=== PATIENT | female | born 1930 | race Caucasian/White ===

== ENCOUNTER 2017-08-08 13:12 | Emergency (ER) | payer MEDICARE, BC ==
[2017-08-08] MEDS ORDERED: Acetaminophen 325 MG Tab PO STA (13:47)
[2017-08-08 13:50] VITALS: BP 182/67
[2017-08-08] MEDS ORDERED: Amoxicillin/Clavulanate K 875-125 MG Tab ONE (14:00)
--- NOTE | 2017-08-08 16:37 | EDM.PDOC ---
ED HPI GENERAL MEDICAL PROBLEM - General Chief Complaint: General Stated Complaint: FALL Time Seen by Provider: 08/08/17 13:30 Source of Information: Reports: Patient, Family History Limitations: Reports: No Limitations - History of Present Illness INITIAL COMMENTS - FREE TEXT/NARRATIVE: Patient is an 87 year old woman who was walking out to her car in the [place] of the [employer]. She tripped on a heave on the concrete and fell onto the left side of her face. She did not lose consciousness and has minimal pain around the left eye with black and blue discoloration. She can move her eye normally and she has no other complaints or pain. Onset: Today Onset Date: 08/08/17 Onset Time: 12:30 Duration: Hour(s): (1), Constant Location: Reports: Face Quality: Reports: Ache Severity: Mild Improves with: Reports: None Worsens with: Reports: None Context: Reports: Trauma (Tripped and fell on face.) Associated Symptoms: Reports: No Other Symptoms Left Eye Pain Score (Numeric/FACES): 2 - Related Data Allergies Allergy/AdvReac Type Severity Reaction Status Date / Time morphine Allergy Hallucinati Verified 08/08/17 16:19 ons Home Meds: Home Meds Aspirin [Halfprin] 81 mg PO DAILY 08/17/15 [History] Calcium Citrate 1 tab PO DAILY 08/17/15 [History] Citalopram [Citalopram Hbr] 40 mg PO DAILY 08/17/15 [History] Lutein/Min/Vit C/Vit E Acetate [Ocuvite Lutein] 1 cap PO DAILY 08/17/15 [History ] buPROPion [Wellbutrin XL] 150 mg PO DAILY 08/17/15 [History] predniSONE [Prednisone] 10 mg PO DAILY 08/17/15 [History] Past Medical History HEENT History: Reports: Cataract Cardiovascular History: Reports: [place], Other (See Below) Other Cardiovascular History: 1989 [place] with Stents Gastrointestinal History: Reports: Chronic Constipation HYDRAULIC RUBBISH 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 (See Below) Other OB/BYN History: hysterectomy many years ago Musculoskeletal History: Reports: Other (See Below) Other Musculoskeletal History: myalgia arthritis Psychiatric History: Reports: Anxiety, Depression - Infectious Disease History Infectious Disease History: Reports: Chicken Pox, Measles, Mumps Social & Family History - Tobacco Use Smoking Status *Q: Never Smoker Second Hand Smoke Exposure: No - Caffeine Use Caffeine Use: Reports: Coffee - Recreational Drug Use Recreational Drug Use: No ED ROS GENERAL - Review of Systems Review Of Systems: See Below Constitutional: Reports: No Symptoms HEENT: Reports: Sinus Problem, Other (Face pain.) Respiratory: Reports: No Symptoms Cardiovascular: Reports: No Symptoms Endocrine: Reports: No Symptoms GI/Abdominal: Reports: No Symptoms : Reports: No Symptoms Musculoskeletal: Reports: No Symptoms Skin: Reports: No Symptoms Neurological: Reports: No Symptoms Psychiatric: Reports: No Symptoms Hematologic/Lymphatic: Reports: No Symptoms Immunologic: Reports: No Symptoms ED EXAM, GENERAL - Physical Exam Exam: See Below Exam Limited By: No Limitations General Appearance: Alert, WD/WN, No Apparent Distress Eye Exam: Bilateral Eye: EOMI, Normal Fundi, Normal Inspection, Periorbital Changes (Contusions and discoloration around left eye.), PERRL Ears: Normal External Exam, Normal Canal, Hearing Grossly Normal, Normal TMs Ear Exam: Bilateral Ear: Auricle Normal, Canal Normal, TM normal Nose: Normal Inspection, Normal Mucosa, No Blood Throat/Mouth: Normal Inspection Head: Facial Swelling, Facial Tenderness, Sinus Tenderness (Left cheek and eye are sore and bruised where she fell on face.) Neck: Normal Inspection, Supple, Non-Tender, Full Range of Motion Respiratory/Chest: No Respiratory Distress, Lungs Clear, Normal Breath Sounds, No Accessory Muscle Use, Chest Non-Tender Cardiovascular: Normal Peripheral Pulses, Regular Rate, Rhythm, No Edema, No Gallop, No JVD, No Murmur, No Rub GI/Abdominal: Normal Bowel Sounds, Soft, Non-Tender, No Organomegaly, No Distention, No Abnormal Bruit, No Mass Back Exam: Normal Inspection, Full Range of Motion, NT Extremities: Normal Inspection, Normal Range of Motion, Non-Tender, Normal Capillary Refill, No Pedal Edema Neurological: Alert, Oriented, CN II-XII Intact, Normal Cognition, Normal Gait, Normal Reflexes, No Motor/Sensory Deficits Psychiatric: Normal Affect, Normal Mood Skin Exam: Warm, Dry, Normal Color, No Rash, Wound/Incision (Superficial laceration 1.5 cm along the left lateral eye socket.) Lymphatic: No Adenopathy ED GENERAL MEDICAL PROCEDURES - Laceration/Wound Repair Left Lateral Face Lac/wound length in cm: 1.5 Appearance: Superficial, Clean Distal NVT: Neuro & Vascular Intact Skin Prep: Saline Exploration/Debridement/Repair: Wound Explored, In a Bloodless Field, Explored to Base, No Foreign Material Found Suture Type: Other (Used Dermabond to close wound with good results and hemostasis.) Course - Vital Signs Text/Narrative:: Uneventful ED course. Her Head CT and Cervical spine CT showed no intracranial or neck injuries but the Head and Facial Bone CT showed Fractures of the Left zygomatic arch, spence of the left maxillary sinuse and left orbit. Discussion with ENT dining chair seat cushion trimmer in [place], and he said that this should be seen by Dr. Lutz in ENT at [facility] once the swelling goes down this week. She will be sent home on Augmentin 875 mg po bid x 10 days, #20. Tylenol 500 mg po q 4 hours and ice on the area. She will follow up tomorrow at the clinic to get all of the appointments made in [place] for later this week. Last Recorded V/S: Last Vital Signs Temp 36.8 C 08/08/17 13:49 Pulse 65 08/08/17 13:49 Resp 16 08/08/17 13:49 BP 182/67 H 08/08/17 13:49 Pulse Ox 99 08/08/17 13:49 - Orders/Labs/Meds Orders: Active Orders 24 hr Category Date Time Status Cervical Spine wo Cont [CT] Stat Exams 08/08/17 13:34 Taken Head wo Cont [CT] Stat Exams 08/08/17 13:33 Taken Max Facial Sinus wo Cont [CT] Stat Exams 08/08/17 14:44 Taken Labs: Laboratory Tests 08/08/17 08/08/17 Range/Units 13:40 13:40 WBC 4.9 D (4.0-11.0) K/uL RBC 3.47 L (3.80-5.80) M/uL Hgb 11.2 L (11.5-16.5) g/dL Hct 34.1 L (37.0-47.0) % MCV 98 H (76-96) fL MCH 32.3 H (27.0-32.0) pg MCHC 32.8 (31.0-35.0) g/dL RDW 13.3 (11.0-16.0) % Plt Count 267 (150-500) K/uL MPV 8.8 (6.0-10.0) fL Neut % (Auto) 86.5 H (45.0-70.0) % Lymph % (Auto) 9.6 L (20.0-40.0) % Gilliam % (Auto) 3.3 (3.0-10.0) % Eos % (Auto) 0.2 L (1.0-5.0) % Baso % (Auto) 0.4 (0.0-0.5) % Neut # (Auto) 4.24 (2.00-7.50) K/uL Lymph # (Auto) 0.47 L (1.50-4.00) K/uL Gilliam # (Auto) 0.16 L (0.20-0.80) K/uL Eos # (Auto) 0.01 L (0.04-0.40) K/uL Baso # (Auto) 0.02 (0.02-0.10) K/uL Sodium 139 (136-145) mmol/L Potassium 4.6 (3.5-5.1) mmol/L Chloride 104 (98-107) mmol/L Carbon Dioxide 22.8 (21.0-32.0) mmol/L Anion Gap 16.8 H (5.0-15.0) mmol/L BUN 18 (8-26) mg/dL Creatinine 1.06 H (0.55-1.02) mg/dL Est Cr Clr Drug Dosing 28.75 mL/min Estimated GFR (MDRD) 49 L (>60) MLS/MIN BUN/Creatinine Ratio 17.0 (6-25) Glucose 119 H D (74-100) mg/dL Calcium 7.4 L (8.5-10.1) mg/dL Total Bilirubin 0.4 D (0.0-1.0) mg/dL AST 28 (15-37) U/L ALT 31 (12-78) U/L Alkaline Phosphatase 70 (46-116) U/L Total Protein 6.3 L (6.4-8.2) g/dL Albumin 3.1 L (3.4-5.0) g/dL Globulin 3.2 (2.2-4.2) g/dL Albumin/Globulin Ratio 1.0 (0.8-2.0) Meds: Medications Discontinued Medications Generic Name Dose Route Start Last Admin Trade Name Cyril PRN Reason Stop Dose Admin Acetaminophen 650 mg 08/08/17 13:47 08/08/17 13:58 Tylenol PO 08/08/17 13:48 650 mg NOW STA Administration Departure - Departure Time of Disposition: 16:50 Disposition: Home, Self-Care 01 Condition: Good Clinical Impression: Extensive facial fractures - Discharge Information Instructions: Head Injury, Adult Referrals: PCP,None [Primary Care Provider] - Forms: ED Department Discharge - My Orders Last 24 Hours: My Active Orders 08/08/17 13:33 Head wo Cont [CT] Stat 08/08/17 13:34 Cervical Spine wo Cont [CT] Stat 08/08/17 14:44 Max Facial Sinus wo Cont [CT] Stat - Assessment/Plan Last 24 Hours: My Active Orders 08/08/17 13:33 Head wo Cont [CT] Stat 08/08/17 13:34 Cervical Spine wo Cont [CT] Stat 08/08/17 14:44 Max Facial Sinus wo Cont [CT] Stat
--- NOTE | 2017-08-08 19:08 | CT ---
DATE OF SERVICE: 08/08/2017 CLINICAL DATA: Fell and hit head on concrete at the grocery store. UNENHANCED BRAIN CT: Multislice acquisition through the brain without IV contrast was performed. There is diffuse cerebral atrophy. There are extensive periventricular lucencies bilaterally consistent with small vessel ischemic change. No masses or mass effect. No intracranial hemorrhage. No evidence of acute or subacute infarct. There are fractures noted through the anterior and posterior lateral spence of the left maxillary sinus as well as a mildly displaced fracture through the left zygomatic arch. This is consistent with a tripod fracture. There is soft tissue swelling and soft tissue emphysema anterior to the left maxilla. There is also a comminuted mildly displaced fracture through the lateral wall of the left orbit. No other acute abnormalities. [id number] [facility]
--- NOTE | 2017-08-08 19:13 | CT ---
DATE OF SERVICE: 08/08/2017 CLINICAL DATA: Fracture of left maxillary sinus. FACIAL CT: Multislice axial acquisition was performed. Axial images and sagittal and coronal reformations are reviewed. Again noted is a mildly displaced fracture through the zygomatic arch on the left. There are comminuted mildly displaced fractures through the anterior and posterior lateral spence of the left maxillary sinus. There is also a comminuted mildly displaced fracture through the lateral wall of the left orbit. There is a mildly displaced fracture through the floor of the left orbit also. No entrapment. The left maxillary sinus is partially filled with soft tissue density material, probably thrombus. There is soft tissue swelling adjacent to the maxilla and mandible. I do not see any other fractures. There is deviation of the nasal septum to the right. There is soft tissue swelling of the middle and inferior nasal turbinates. IMPRESSION: Multiple fractures. [id number] [facility]
--- NOTE | 2017-08-08 19:17 | CT ---
DATE OF SERVICE: 08/08/2017 CLINICAL DATA: Fell and hit head. In C-collar. CERVICAL SPINE CT: Multislice axial acquisition was performed. Axial images and sagittal and coronal reformations are reviewed. The vertebral bodies are of average height. No acute fracture or dislocation. There is mild degenerative disc disease at multiple levels. There is facet joint hypertrophy at multiple levels. No lytic or blastic bone lesions. The soft tissues are unremarkable. The visualized lung apices are clear. IMPRESSION: No acute abnormalities. [id number] [facility]
== END 2017-08-08 17:04 | disposition home or self-care (01) ==
LOC: LB.ED 13:12
DX: S02.40DA Maxillary fracture, left side, initial encounter for closed fracture (principal); S02.40FA Zygomatic fracture, left side, initial encounter for closed fracture; S02.82XA Fracture of other specified skull and facial bones, left side, initial encounter for closed fracture; S02.32XA Fracture of orbital floor, left side, initial encounter for closed fracture; S01.81XA Laceration without foreign body of other part of head, initial encounter; W01.190A Fall on same level from slipping, tripping and stumbling with subsequent striking against furniture, initial encounter; Y92.481 Parking lot as the place of occurrence of the external cause; Z79.82 Long term (current) use of aspirin; Z88.5 Allergy status to narcotic agent; Z79.899 Other long term (current) drug therapy
CPT/HCPCS: 12011; 36415; 70450; 70486; 72125; 80053; 85025; 99284; 99284-25; A0425; A0429; A9270-GY

== ENCOUNTER 2018-08-10 01:10 | Emergency (ER) | payer MEDICARE, BC ==
[2018-08-10 01:33] VITALS: BP 190/60
--- NOTE | 2018-08-10 16:14 | EDM.PDOC ---
ED HPI GENERAL MEDICAL PROBLEM - General Chief Complaint: General Stated Complaint: FELL Time Seen by Provider: 08/10/18 01:15 Source of Information: Reports: Patient History Limitations: Reports: No Limitations - History of Present Illness INITIAL COMMENTS - FREE TEXT/NARRATIVE: According to patient she got up at night to use bathroom and lost balance and fell and hit her face against the sink, sustained a swelling over the left side of the forehead. No loss of concious. No bleeding form ENT, No dizziness, no visual disturbance, no headache. Pt has a large lump over the left fore head and hence here to have it checked. No other injuries. Pt does take plavix daily. Onset Date: 08/10/18 Onset Time: 00:30 Location: Reports: Face Severity: Mild Improves with: Reports: Cold Therapy Worsens with: Reports: None Associated Symptoms: Denies: Confusion, Chest Pain, Cough, Diaphoresis, Fever/ Chills, Headaches, Loss of Appetite, Nausea/Vomiting, Seizure, Shortness of Breath, Syncope, Weakness Left Upper Eye Pain Score (Numeric/FACES): 7 - Related Data Allergies Allergy/AdvReac Type Severity Reaction Status Date / Time morphine Allergy Hallucinati Verified 08/10/18 01:24 ons Home Meds: Home Meds Aspirin [Halfprin] 81 mg PO DAILY 08/17/15 [History] Calcium Citrate 1 tab PO DAILY 08/17/15 [History] Citalopram [Citalopram Hbr] 40 mg PO DAILY 08/17/15 [History] Lutein/Min/Vit C/Vit E Acetate [Ocuvite Lutein] 1 cap PO DAILY 08/17/15 [History ] buPROPion [Wellbutrin XL] 150 mg PO DAILY 08/17/15 [History] predniSONE [Prednisone] 10 mg PO DAILY 08/17/15 [History] Clopidogrel Bisulfate [Clopidogrel] 75 mg PO DAILY 08/10/18 [History] Erythromycin Base [Erythromycin] 1 applic OP ASDIRECTED 08/10/18 [History] Losartan Potassium 25 mg PO DAILY 08/10/18 [History] Oxybutynin [Oxybutynin ER] 5 mg PO DAILY 08/10/18 [History] Past Medical History HEENT History: Reports: Cataract, Macular Degeneration Cardiovascular History: Reports: [place], Other (See Below) Other Cardiovascular History: 1989 [place] with Stents Gastrointestinal History: Reports: Chronic Constipation 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 (See Below) Other LIVESTOCK INSPECTOR History: hysterectomy many years ago Musculoskeletal History: Reports: Other (See Below) Other Musculoskeletal History: myalgia arthritis Psychiatric History: Reports: Anxiety, Depression - Infectious Disease History Infectious Disease History: Reports: Chicken Pox, Measles, Mumps Social & Family History - Tobacco Use Smoking Status *Q: Unknown Ever Smoked Second Hand Smoke Exposure: No - Caffeine Use Caffeine Use: Reports: Coffee - Recreational Drug Use Recreational Drug Use: No ED ROS GENERAL - Review of Systems Review Of Systems: See Below Constitutional: Denies: Fever, Chills, Malaise HEENT: Denies: Eye Discharge, Nosebleed, Rhinitis, Throat Pain, Throat Swelling , Vision Change Respiratory: Denies: Shortness of Breath, Wheezing Cardiovascular: Denies: Chest Pain, Lightheadedness, Palpitations Endocrine: Denies: Fatigue GI/Abdominal: Denies: Abdominal Pain, Nausea, Vomiting : Denies: Incontinence, Urgency Musculoskeletal: Denies: Joint Pain, Joint Swelling Skin: Reports: Wound. Denies: Rash, Erythema Neurological: Denies: Confusion, Dizziness, Headache, Numbness, Pre-Existing Deficit, Syncope, Tingling, Tremors, Difficulty Walking, Weakness, Change in Speech ED EXAM, GENERAL - Physical Exam Exam: See Below Exam Limited By: No Limitations General Appearance: Alert, WD/WN, No Apparent Distress Eye Exam: Bilateral Eye: EOMI, PERRL Ears: Normal External Exam, Normal Canal, Hearing Grossly Normal, Normal TMs Ear Exam: Bilateral Ear: Auricle Normal, Canal Normal, TM normal Nose: Normal Inspection, Normal Mucosa, No Blood Throat/Mouth: Normal Inspection, Normal Lips, Normal Teeth, Normal Gums, Normal Oropharynx, Normal Voice, No Airway Compromise Head: Facial Swelling (There is a 2cm nby 3 cm raised swelling over the left forehead just above the eyebrow. minimal tenderness. there is skin brusing aound it.). No: Facial Tenderness, Sinus Tenderness Neck: Normal Inspection, Supple, Non-Tender, Full Range of Motion Respiratory/Chest: No Respiratory Distress, Lungs Clear, Normal Breath Sounds, No Accessory Muscle Use, Chest Non-Tender Cardiovascular: Normal Peripheral Pulses, Regular Rate, Rhythm, No Edema, No Gallop, No JVD, No Murmur, No Rub Extremities: Normal Inspection, Normal Range of Motion, Non-Tender, Normal Capillary Refill, No Pedal Edema Neurological: Alert, Oriented, CN II-XII Intact, Normal Cognition, Normal Gait, Normal Reflexes, No Motor/Sensory Deficits Psychiatric: Normal Affect, Normal Mood Course - Vital Signs Text/Narrative:: Pt reassured that she has a small forehead external hematoma form the fall. Her neuro exam is normal. Advised to monitor for head injury signs for next 24 hrs. Information give to patient, if it occurs return to emergency room. Otherwise advised cold compresses to the forehead every 2-3 hrs for next 24 hrs. The bruising should resolve in 2-3 wks. Last Recorded V/S: Last Vital Signs Temp 97.2 F 08/10/18 01:10 Pulse 62 08/10/18 01:10 Resp 16 08/10/18 01:10 BP 190/60 H 08/10/18 01:10 Pulse Ox 100 08/10/18 01:10 Departure - Departure Time of Disposition: 14:00 Disposition: Home, Self-Care 01 Condition: Good Clinical Impression: Traumatic hematoma of forehead - Discharge Information *PRESCRIPTION DRUG MONITORING PROGRAM REVIEWED*: Not Applicable *COPY OF PRESCRIPTION DRUG MONITORING REPORT IN PATIENT TY: Not Applicable Instructions: Head Injury, Adult, [id number] Referrals: PCP,None [Primary Care Provider] - Forms: ED Department Discharge Additional Instructions: Should any severe headache, nausea, vomiting, loss of or blurry vision, ringing in ears, or change in mental status/confusion occur within next 24 hours, return to be seen right away. Apply cold compresses to affected area for 15 minutes every 2-3 hours to help decrease swelling and for pain relief. If any bleeding in the affected eye itself is noted, that is normal with this type of injury. Otherwise follow up in clinic as needed. Call with any questions. - Problem List & Annotations (1) Traumatic hematoma of forehead SNOMED Code(s): 456449724, 512053074 Code(s): S00.83XA - CONTUSION OF OTHER PART OF HEAD, INITIAL ENCOUNTER Status: Acute - Problem List Review Problem List Initiated/Reviewed/Updated: Yes - Assessment/Plan Assessment:: Forehead hematoma Plan: Pt reassured that she has a small forehead external hematoma form the fall. Her neuro exam is normal. Advised to monitor for head injury signs for next 24 hrs. Information give to patient, if it occurs return to emergency room. Otherwise advised cold compresses to the forehead every 2-3 hrs for next 24 hrs. The bruising should resolve in 2-3 wks.
== END 2018-08-10 01:47 | disposition home or self-care (01) ==
LOC: LB.ED 01:10
DX: S00.83XA Contusion of other part of head, initial encounter (principal); I25.2 Old myocardial infarction; F41.9 Anxiety disorder, unspecified; F32.9 Major depressive disorder, single episode, unspecified; Z79.899 Other long term (current) drug therapy; Z79.82 Long term (current) use of aspirin; Z88.5 Allergy status to narcotic agent; W01.198A Fall on same level from slipping, tripping and stumbling with subsequent striking against other object, initial encounter
CPT/HCPCS: 99283

== ENCOUNTER 2018-08-20 07:58 | Emergency (ER) | payer MEDICARE, BC ==
[2018-08-20] MEDS ORDERED: Omeprazole 20 MG Cap.CR ONE ×2 (08:20→09:24)
[2018-08-20] MEDS ORDERED: Aluminum Hydroxide/Magnesium Hydroxide/Simethicone Susp 30 ML Cup ONE (08:21)
[2018-08-20 09:03] VITALS: BP 165/75
--- NOTE | 2018-08-20 16:54 | ER ---
HISTORY: The patient is an 88-year-old white female, comes in with a chief complaint of chest pain. She notes she woke up with it this morning. She describes it as a burning pain. She has had it off and on the last couple of days, primarily at night when she is lying down in bed. Once the nitroglycerin improved and once it did not. The patient does have a history of coronary artery disease. ALLERGIES: MORPHINE. CURRENT MEDICATIONS: Are prednisone 10 mg p.o. daily, Wellbutrin 150 mg p.o. daily, oxybutynin 5 mg p.o. daily, Ocuvite 1 p.o. daily, losartan 25 mg p.o. daily. The patient uses some topical erythromycin. She is on Plavix 75 mg p.o. daily and citalopram 40 mg p.o. daily. She also takes some calcium citrate and an 81 mg aspirin. PHYSICAL EXAMINATION: GENERAL: She is alert, oriented, no apparent distress. She does have quite a bit of bruising on the left side of her face from previous fall. HEART: Regular sinus rhythm. LUNGS: Clear. ABDOMEN: Soft, nontender. Positive bowel sounds. No hepatosplenomegaly. EXTREMITIES: She has some trace edema. DATA: A 12-lead EKG shows some nonspecific ST changes. The patient had a white count of 7.1, hemoglobin and hematocrit were good at 11.7 and 35.6. Basic metabolic panel shows a BUN of 20, creatinine 1.15. Electrolytes are all within normal limits. We did do a troponin which was less than 0.017. In the ER, the patient received a GI cocktail after the 12-lead was obtained, this brought fairly quick relief to her discomfort. The labs were reviewed. The patient was rechecked and was discharged home on Prilosec 20 mg 1 p.o. daily with instructions to return to clinic if this fails to resolve the problem, would have her take it daily at least for the next several weeks. ASSESSMENT: Chest pain, noncardiac, most likely due to GE reflux. SULEMAN/CARMEN /[id number]
== END 2018-08-20 09:23 | disposition home or self-care (01) ==
LOC: LB.ED 07:58
DX: R07.89 Other chest pain (principal)
CPT/HCPCS: 36415; 80048; 84484; 85025; 93005; 99284; A9270

== ENCOUNTER 2018-11-23 04:00 | Emergency (ER) | payer MEDICARE, BC ==
[2018-11-23] MEDS ORDERED: HYDROmorphone 2 MG/ML SDV IVPUSH ONE (04:39)
[2018-11-23] MEDS ORDERED: HYDROmorphone 2 MG/ML Syringe IVPUSH ONE (05:55)
[2018-11-23] MEDS ORDERED: HYDROmorphone 2 MG/ML SDV ONE ×2 (05:55→08:04)
--- NOTE | 2018-11-23 06:10 | EDM.PDOC ---
ED HPI GENERAL MEDICAL PROBLEM - General Chief Complaint: General Stated Complaint: FALL Time Seen by Provider: 11/23/18 04:45 Source of Information: Reports: Patient, Family History Limitations: Reports: No Limitations - History of Present Illness INITIAL COMMENTS - FREE TEXT/NARRATIVE: Pt was brought in by family to the emergency room, as she fell today morning.Pt came in walking into the emergency room. According to patient she got up to use bathroom around 4 AM. Loyal dizzy and fell in the bathroom and hit her head against the bathtub and sustained a large left forehead hematoma. C/o pain in her right forehead . Rates her pain in the head at 8/10 and constant. NO loss of consciousness, No nausea or vomiting. No blurry vision. No weakness , tingling or numbness in the extremities. Also , Pt c/o pain in the back of her neck, more so in the upper neck. No open wounds.Pt was placed in the C-collar on arrival. Onset: Today Onset Date: 11/23/18 Onset Time: 04:00 Duration: Constant Location: Reports: Head, Face, Neck Quality: Reports: Ache Severity: Moderate Improves with: Reports: Cold Therapy Associated Symptoms: Reports: Headaches. Denies: Confusion, Chest Pain, Cough, Diaphoresis, Fever/Chills, Nausea/Vomiting, Rash, Seizure, Shortness of Breath, Syncope, Weakness - Related Data Allergies Allergy/AdvReac Type Severity Reaction Status Date / Time morphine Allergy Hallucinati Verified 08/20/18 08:52 ons Home Meds: Home Meds Aspirin [Halfprin] 81 mg PO DAILY 08/17/15 [History] Calcium Citrate 1 tab PO DAILY 08/17/15 [History] Citalopram [Citalopram Hbr] 40 mg PO DAILY 08/17/15 [History] Lutein/Min/Vit C/Vit E Acetate [Ocuvite Lutein] 1 cap PO DAILY 08/17/15 [History ] buPROPion [Wellbutrin XL] 150 mg PO DAILY 08/17/15 [History] predniSONE [Prednisone] 15 mg PO DAILY 08/17/15 [History] Clopidogrel Bisulfate [Clopidogrel] 75 mg PO DAILY 08/10/18 [History] Losartan Potassium 25 mg PO DAILY 08/10/18 [History] Oxybutynin [Oxybutynin ER] 5 mg PO DAILY 08/10/18 [History] Past Medical History HEENT History: Reports: Cataract, Macular Degeneration Cardiovascular History: Reports: IN, Other (See Below) Other Cardiovascular History: 1989 IN with Stents Gastrointestinal History: Reports: Chronic Constipation [employer] History: Reports: Other (See Below) Other [employer] History: hysterectomy many years ago Musculoskeletal History: Reports: Other (See Below) Other Musculoskeletal History: myalgia arthritis Psychiatric History: Reports: Anxiety, Depression - Infectious Disease History Infectious Disease History: Reports: Chicken Pox, Measles, Mumps Social & Family History - Caffeine Use Caffeine Use: Reports: Coffee ED ROS GENERAL - Review of Systems Review Of Systems: See Below Constitutional: Denies: Fever, Chills HEENT: Denies: Nosebleed, Rhinitis, Throat Pain Respiratory: Denies: Shortness of Breath, Pleuritic Chest Pain, Cough, Sputum Cardiovascular: Denies: Chest Pain, Lightheadedness GI/Abdominal: Denies: Abdominal Pain, Nausea, Vomiting : Denies: Dysuria, Frequency, Hematuria Musculoskeletal: Reports: Neck Pain. Denies: Back Pain, Joint Pain, Joint Swelling Skin: Reports: Bruising. Denies: Pruritis, Rash, Wound ED EXAM, GENERAL - Physical Exam Exam: See Below Exam Limited By: No Limitations General Appearance: Alert, WD/WN, Moderate Distress (from pain rates her pain at 8/10) Eye Exam: Bilateral Eye: EOMI, PERRL Ears: Normal External Exam, Normal Canal, Hearing Grossly Normal, Normal TMs Ear Exam: Bilateral Ear: Auricle Normal, Canal Normal, TM normal Nose: Normal Inspection, Normal Mucosa, No Blood Throat/Mouth: Normal Inspection, Normal Lips, Normal Teeth, Normal Gums, Normal Oropharynx, Normal Voice, No Airway Compromise Head: Facial Swelling, Other (Thee is a large right frontal hematoma with skin brusing extending into the right upper and lower yelid. The eye ball appears normal. She has normal vision and Good EOMI.). No: Facial Tenderness, Sinus Tenderness Neck: Tender Midline (tender over the upper cervical spine to palpation. Pt has been placed in hard collar) Respiratory/Chest: No Respiratory Distress, Lungs Clear, Normal Breath Sounds, No Accessory Muscle Use, Chest Non-Tender Cardiovascular: Normal Peripheral Pulses, Regular Rate, Rhythm, No Edema, No Gallop, No JVD, No Murmur, No Rub Back Exam: Normal Inspection, Full Range of Motion, NT Extremities: Normal Inspection, Normal Range of Motion, Non-Tender, Normal Capillary Refill, No Pedal Edema Neurological: Alert, Oriented, CN II-XII Intact, Normal Cognition, Normal Reflexes, No Motor/Sensory Deficits Skin Exam: Warm, Intact, Other (Large frontal hematoma as described about. ) Course - Vital Signs Text/Narrative:: 88 year old female s/p fall. She does have a large frontal hematoma with the bruise extending into her right eyelids. But the Globe appears normal. She has normal vision and ROM of the eye ball. She is tender over the upper posterior C- spine. No other injuries. Pt received 0.5mg Iv Dilaudid before sending her for Ct head and neck. CT head is negative for intracranial hemorrhage or skull fracture.Her CBC is stable. Her Pt and INT are within normal limits. Her CT spine shows acute fracture of the C2 across the base of the odontoid with atlantoaxial subluxation with 7mm anterior displacement of the cervical spine relative to the skull base and C1. I did contact [facility] and discuss patient clinical findings and the C- spine CT findings with the Neurosurgeon emergency management consultant. His recommendation was to place patient in the J-collar with good support and conservative management. Apparently we only have hard C-collar in the emergency room here. He recommended patient to be seen at neurosurgery clinic today. She should be okay for her to go down to neurosurgery clinic at [facility] today and be evaluated as out patient. Pt still rates her pain at 8/10, received another 1mg of dilaudid for her travel. I have discussed Dr. Rg recommendation with family. Patient and family agree with the plan. Pt will be seen at [facility] today. There are no neurological deficit at the time of discharge. Further care per . Last Recorded V/S: Last Vital Signs Temp 97.8 F 11/23/18 05:16 Pulse 62 11/23/18 05:16 Resp 20 11/23/18 05:16 BP 192/55 H 11/23/18 05:16 Pulse Ox 100 11/23/18 05:16 - Orders/Labs/Meds Orders: Active Orders 24 hr Category Date Time Status Cervical Spine wo Cont [CT] Stat Exams 11/23/18 04:27 Taken Head wo Cont [CT] Stat Exams 11/23/18 04:47 Taken CBC WITH AUTO DIFF [HEME] Stat Lab 11/23/18 05:51 Ordered COMPREHENSIVE METABOLIC PN,CMP [CHEM] Stat Lab 11/23/18 05:51 Ordered INR,PT,PROTHROMBIN TIME [COAG] Stat Lab 11/23/18 05:51 Ordered PTT,PARTIAL THROMBOPLSTIN TIME [COAG] Stat Lab 11/23/18 05:51 Ordered Meds: Medications Discontinued Medications Generic Name Dose Route Start Last Admin Trade Name Cyril PRN Reason Stop Dose Admin Hydromorphone HCl 0.5 mg 11/23/18 04:39 11/23/18 04:27 Dilaudid IVPUSH 11/23/18 04:40 0.5 mg ONETIME ONE Administration Hydromorphone HCl Confirm 11/23/18 05:55 Dilaudid Administered 11/23/18 05:56 Dose 2 mg .ROUTE .STK-MED ONE Departure - Departure Time of Disposition: 06:45 Disposition: DC/Tfer to Other 70 Condition: Fair Clinical Impression: C2 cervical fracture, Traumatic hematoma of forehead - Discharge Information *PRESCRIPTION DRUG MONITORING PROGRAM REVIEWED*: Not Applicable *COPY OF PRESCRIPTION DRUG MONITORING REPORT IN PATIENT TY: Not Applicable Referrals: PCP,None [Primary Care Provider] - - Problem List & Annotations (1) Traumatic hematoma of forehead SNOMED Code(s): 348226975, 875264003 Code(s): S00.83XA - CONTUSION OF OTHER PART OF HEAD, INITIAL ENCOUNTER Status: Acute Current Visit: Yes (2) C2 cervical fracture SNOMED Code(s): 626990842 Code(s): S12.100A - UNSP DISP FX OF SECOND CERVICAL VERTEBRA, INIT FOR CLOS FX Status: Acute Current Visit: Yes - Problem List Review Problem List Initiated/Reviewed/Updated: Yes - My Orders Last 24 Hours: My Active Orders 11/23/18 04:27 Cervical Spine wo Cont [CT] Stat 11/23/18 04:47 Head wo Cont [CT] Stat 11/23/18 05:51 CBC WITH AUTO DIFF [HEME] Stat COMPREHENSIVE METABOLIC PN,CMP [CHEM] Stat INR,PT,PROTHROMBIN TIME [COAG] Stat PTT,PARTIAL THROMBOPLSTIN TIME [COAG] Stat - Assessment/Plan Last 24 Hours: My Active Orders 11/23/18 04:27 Cervical Spine wo Cont [CT] Stat 11/23/18 04:47 Head wo Cont [CT] Stat 11/23/18 05:51 CBC WITH AUTO DIFF [HEME] Stat COMPREHENSIVE METABOLIC PN,CMP [CHEM] Stat INR,PT,PROTHROMBIN TIME [COAG] Stat PTT,PARTIAL THROMBOPLSTIN TIME [COAG] Stat Assessment:: C2 cervical fracture with atlantoaxial subluxation Right forehead hematoma Plan: 88 year old female s/p fall. She does have a large frontal hematoma with the bruise extending into her right eyelids. But the Globe appears normal. She has normal vision and ROM of the eye ball. She is tender over the upper posterior C- spine. No other injuries. Pt received 0.5mg Iv Dilaudid before sending her for Ct head and neck. CT head is negative for intracranial hemorrhage or skull fracture.Her CBC is stable. Her Pt and INT are within normal limits. Her CT spine shows acute fracture of the C2 across the base of the odontoid with atlantoaxial subluxation with 7mm anterior displacement of the cervical spine relative to the skull base and C1. I did contact [facility] and discuss patient clinical findings and the C- spine CT findings with the Neurosurgeon emergency management consultant. His recommendation was to place patient in the J-collar with good support and conservative management. Apparently we only have hard C-collar in the emergency room here. He recommended patient to be seen at neurosurgery clinic today. She should be okay for her to go down to neurosurgery clinic at [facility] today and be evaluated as out patient. Pt still rates her pain at 8/10, received another 1mg of dilaudid for her travel. I have discussed Dr. Rg recommendation with family. Patient and family agree with the plan. Pt will be seen at [facility] clinic today. There are no neurological deficit at the time of discharge. Further care per .
[2018-11-23 06:42] VITALS: BP 185/69; PULSE 63
[2018-11-23] MEDS ORDERED: HYDROmorphone 2 MG/ML SDV IM ONE (08:05)
--- NOTE | 2018-11-23 08:19 | CT ---
Date of Service: 11/23/18 Clinical Data: fall UNENHANCED BRAIN CT: Multislice axial acquisition was performed. Comparison is made to a prior exam dated 08/08/17. There is diffuse cerebral atrophy. There are extensive periventricular lucencies bilaterally consistent with small vessel ischemic change. No masses or mass effect. No intracranial hemorrhage. No evidence of acute or subacute infarct. There is marked soft tissue swelling and soft tissue hematoma anterior to the frontal bone. There is also marked preseptal soft tissue swelling on the right. I do not see an underlying fracture. There is mucosal thickening in the ethmoid sinuses consistent with chronic sinusitis. The sinuses are otherwise clear. No air-fluid levels. The globes and orbital contents appear unremarkable. IMPRESSION: No acute intracranial abnormalities. Large scalp hematoma and preseptal soft tissue swelling on the right. [id number] [facility]
--- NOTE | 2018-11-23 08:31 | CT ---
Date of Service: 11/23/18 Clinical Data: fall CERVICAL SPINE CT: Multislice axial acquisition was performed. Axial images and sagittal and coronal reformations are reviewed. The exam is abnormal. There is a displaced oblique fracture through the base of the odontoid process of C2. The odontoid fracture fragment is displaced posteriorly 7 mm. This does produce narrowing of the spinal canal in the AP dimension. There is mild compression deformity of the inferior endplate of C7 and superior endplates of T1 and T2. No central or foraminal stenosis at these levels. There is degenerative disk disease at multiple levels. There is facet joint hypertrophy throughout the cervical spine. Also noted is a mildly displaced comminuted fracture through the posterolateral wall of the left maxillary sinus. There is a mildly displaced fracture through the zygomatic arch on the left. There also appears to be a mildly displaced fracture through the anterior wall of the left maxillary sinus. There is a fracture that extends through the inferior aspect of the left maxilla with mild displacement also. There is near total opacification of the left maxillary sinus most likely representing hematoma. No other acute abnormalities. IMPRESSION: 1. Displaced C2 odontoid process fracture as discussed above. 2. Burst compression fractures of multiple lower cervical and upper thoracic vertebrae. 3. Tripod fracture involving the left maxilla and left zygomatic arch. Patient's physician was notified of these findings by telephone and by [facility] preliminary radiology report. [id number] [facility]
== END 2018-11-23 06:53 | disposition other institution (70) ==
LOC: LB.ED 04:00
DX: S12.100A Unspecified displaced fracture of second cervical vertebra, initial encounter for closed fracture (principal); S00.83XA Contusion of other part of head, initial encounter; S00.11XA Contusion of right eyelid and periocular area, initial encounter; I25.2 Old myocardial infarction; F41.9 Anxiety disorder, unspecified; F32.9 Major depressive disorder, single episode, unspecified; Z88.5 Allergy status to narcotic agent; Z79.82 Long term (current) use of aspirin; Z79.899 Other long term (current) drug therapy; W18.39XA Other fall on same level, initial encounter
CPT/HCPCS: 36415; 70450; 72125; 85025; 85610; 85730; 96374; 96376; 99284; A0425; A0429; J1170